=== PATIENT | female | born 1995 | race Caucasian/White ===

== ENCOUNTER 2018-04-14 02:00 | Emergency (ER) | payer MEDICAID ==
[~2018-04-14] VITALS: Ht 162.6 cm; Wt 85.7 kg
[2018-04-14 02:45] VITALS: BP_SYST 145
--- NOTE | 2018-04-14 02:50 | NUR ---
Pt back to the waiting room, ER MD aware of pt's temp. Requested order of fever meds
[2018-04-14] MEDS ORDERED: ACETAMINOPHEN 325 MG TABLET PO ONE (03:15)
--- NOTE | 2018-04-14 05:42 | NUR ---
0542 - Patient to ER bed 3 to gown for evaluation. Side rails up. Report given to MERRILL Lin.
--- NOTE | 2018-04-14 05:50 | NUR ---
Patient AOx4, ambulatory, presents to ER with complaint of fever x8 hours. Patient also states cough and sore throat. Patient medicated with Tylenol at 2100. 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 No other symptoms or complaints.
--- NOTE | 2018-04-14 06:40 | NUR ---
ER MD Aquino at bedside for medical evaluation.
[2018-04-14] MEDS ORDERED: NACL 0.9% 1,000 ML IV ONE (07:30)
[2018-04-14] MEDS ORDERED: PIPERACILLIN/TAZO 3.375 GM in NS 50 ML IV ONE (07:30)
--- NOTE | 2018-04-14 07:36 | NUR ---
Pt is here for c/o fever, headache, cough for 2 days, denied abd pain, no nausea or vomiting. Per pt she took Tylenol at 2100 last night. BP 123/67, HR 112, temp 100.3. notified for fever. Pt is alert and orientedx3, lung sounds clear. Urine obtained, sent to lab.
[2018-04-14 07:39] LABS: BASOPHILS # (AUTO) 0.1 K/uL (0.0-0.2); BASOPHILS % (AUTO) 1.5 % (0.0-2.0); EOSINOPHILS % (AUTO) 0.1 % (0.0-4.0); HEMATOCRIT 39.9 % (36-48); HEMOGLOBIN 12.7 g/dL (12.0-16.0); LYMPHOCYTES # (AUTO) 0.6 K/uL (1.0-5.5); LYMPHOCYTES % (AUTO) 7.7 % (20.5-51.5); MEAN CORPUSCULAR HEMOGLOBIN 24 pg (27-31); MEAN CORPUSCULAR HGB CONC 32 % (32-36); MEAN CORPUSCULAR VOLUME 76 fL (79.0-98.0); MONOCYTES # (AUTO) 0.6 K/uL (0.0-1.0); MONOCYTES % (AUTO) 7.7 % (1.7-9.3); NEUTROPHILS # (AUTO) 6.4 K/uL (1.8-7.7); PLATELET COUNT (AUTO) 285 K/uL (130-430); RED BLOOD CELL COUNT(AUTO) 5.25 MIL/uL (4.2-6.2); RED CELL DISTRIBUTION WIDTH 13.3 % (9.0-15.0); WHITE BLOOD COUNT (AUTO) 7.7 K/uL (4.8-10.8)
[2018-04-14 08:06] LABS: CALCIUM 8.7 mg/dL (8.4-11.0); CREATININE 0.66 mg/dL (0.55-1.30); POTASSIUM 3.6 mmol/L (3.5-5.1)
[2018-04-14 08:16] LABS: ALBUMIN 3.2 g/dL (3.4-4.8); TOTAL BILIRUBIN 0.2 mg/dL (0.0-1.0)
[2018-04-14 08:19] LABS: BILIRUBIN,URINE NEGATIVE (NEGATIVE); BLOOD, URINE 3+ (NEGATIVE); CLARITY/URINE HAZY (CLEAR); COLOR,URINE YELLOW (YELLOW); GLUCOSE,URINE NEGATIVE (NEGATIVE); KETONES,URINE NEGATIVE (NEGATIVE); LEUKOCYTE ESTERASE ,URINE NEGATIVE (NEGATIVE); NITRITE, URINE NEGATIVE (NEGATIVE); PH,URINE 5.5 (5.0-8.0); PROTEIN URINE 2+ (NEGATIVE); UROBILINOGEN,URINE 0.2 (0.2-1.0)
[2018-04-14 08:45] LABS: BACTERIA,URINE FEW /HPF (None Seen); MUCUS,URINE 1+ /LPF (None Seen); WBC,URINE 0-3 /HPF (0-3)
[2018-04-14] MEDS ORDERED: IBUPROFEN 600 MG TABLET PO ONE (09:30)
--- NOTE | 2018-04-14 09:42 | NUR ---
Late entry for 0900- Pt's temp rechecked, temp ios 102.8. notified.
[2018-04-14 10:32] VITALS: BP_SYST 105
--- NOTE | 2018-04-14 10:41 | NUR ---
Patient given written and verbal discharge instructions and verbalizes understanding. ER MD discussed with patient the results and treatment provided. Patient in stable condition. ID arm band removed. IV catheter removed intact and dressing applied, no active bleeding. Rx of motrin and tamiflu given. Patient educated on pain management and to follow up with PMD. Pain Scale 0. Opportunity for questions provided and answered. Medication side effect fact sheet provided.
== END 2018-04-14 10:41 | disposition home or self-care (01) ==
LOC: SED 02:00
DX: J11.1 Influenza due to unidentified influenza virus with other respiratory manifestations (principal)
CPT/HCPCS: 36415; 71045; 80053; 81000; 85025; 86710; 87081; 99284; J7030